=== PATIENT | male | born 1965 | race African-American/Black ===

== ENCOUNTER 2019-08-19 05:57 | Emergency (ER) | payer OTHER ==
[~2019-08-19] VITALS: Ht 172.7 cm; Wt 77.1 kg
--- NOTE | 2019-08-19 05:58 | NUR ---
ED Nurse Note: pt presents to ED in custody of [employer] for medical clearance. pt reports back pain that is chronic for him. pt denies any new injury or trauma to the area. [employer] officer Salomon workman #[id number] is at pt bedside
[2019-08-19 06:00] VITALS: BP 142/89
--- NOTE | 2019-08-19 06:11 | Emergency Room Report ---
History of Present Illness General Chief Complaint: Medical Clearance Source: Patient, Law Enforcement Present Illness HPI This is a 54-year-old male with a history of back pain. He presents with complaint of back pain. He was arrested and was walking without any problem. Now complaint of back pain so police brought him here for medical clearance. Patient denies any trauma. No incontinence of bowel or urine. He said the pain dropped down to his legs. No new trauma. No fever chills. No incontinence of bowel or urine. Pain is 9 out of 10. Allergies: Coded Allergies: No Known Allergies (Unverified , 08/19/19) Patient History Past Medical History: see triage record, old chart reviewed Past Surgical History: none Pertinent Family History: none Social History: Denies: smoking Immunizations: other Reviewed Nursing Documentation: PMH: Agreed; PSxH: Agreed Nursing Documentation-PMH History Of Psychiatric Problem: Yes Hx Neurological Problems: Yes - chronic back pain since 1981 Review of Systems Eye: Denies: eye pain, blurred vision ENT: Denies: ear pain, nose congestion, throat swelling Respiratory: Denies: cough, shortness of breath Cardiovascular: Denies: chest pain, palpitations Gastrointestinal: Denies: abdominal pain, diarrhea, nausea, vomiting Musculoskeletal: Reports: back pain; Denies: joint pain Skin: Denies: rash Neurological: Denies: headache, numbness Endocrine: Denies: increased thirst, increased urine Hematologic/Lymphatic: Denies: easy bruising All Other Systems: negative except mentioned in HPI Physical Exam Vital Signs Date Time Temp Pulse Resp B/P (MAP) Pulse Ox O2 Delivery O2 Flow Rate FiO2 08/19/19 05:59 98.4 85 16 142/89 (106) 97 Room Air Vitals unremarkable Sp02 EP Interpretation: reviewed, normal General Appearance: well appearing, no apparent distress, alert, other - Patient is sleeping Head: normocephalic, atraumatic Eyes: bilateral eye PERRL, bilateral eye EOMI ENT: hearing grossly normal, normal pharynx Neck: full range of motion, supple, no meningismus Respiratory: chest non-tender, lungs clear, normal breath sounds Cardiovascular #1: regular rate, rhythm, no murmur Gastrointestinal: normal bowel sounds, non tender, no mass, no organomegaly, no bruit, non-distended Musculoskeletal: back normal - Tenderness to lower back. No step-off or anesthesia., normal range of motion, gait/station normal Psychiatric: mood/affect normal Medical Decision Making Diagnostic Impression: Primary Impression: Back pain Qualified Codes: M54.5 - Low back pain Additional Impression: Examination, medicolegal reason ER Course Patient with lower back pain. This is a chronic condition. It was not a problem until he was arrested. No evidence of cauda equina syndrome, spinal epidural abscess or neoplastic process. Will discharge home. Last Vital Signs Date Time Temp Pulse Resp B/P (MAP) Pulse Ox O2 Delivery O2 Flow Rate FiO2 08/19/19 06:00 98.4 78 16 142/89 97 Room Air Status: unchanged Disposition: D/C TO LAW ENFORCEMENT IN CUST Condition: Stable Additional Instructions: Follow-up with your doctor in 7 days. Return if symptoms worsen. Malcom Gu MD Aug 19, 2019 06:11
--- NOTE | 2019-08-19 06:18 | NUR ---
ER DISCHARGE NOTE: Patient is cleared to be discharged per ERMD, and is ok to book. pt is aox4, on room air, with stable vital signs. pt and officers were given dc instructions. all parties present was able to verbalize understanding, pt id band without complications. pt is able to ambulate with steady gait. pt took all belongings and left with [employer]
[2019-08-19 06:19] VITALS: BP 142/89
== END 2019-08-19 06:20 ==
LOC: EMR 06:15
DX: M54.5 Low back pain (principal)
CPT/HCPCS: 99281